=== PATIENT | female | born 1990 | race African-American/Black ===

== ENCOUNTER 2021-04-24 04:28 | Emergency (ER) | payer MEDICAID ==
[~2021-04-24] VITALS: Ht 172.7 cm; Wt 77.2 kg
[~2021-04-24 04:28] MED LIST: ALBU6.7H9 INH; BUSP10TA3 MT; LURA40TA PO; MULT-1146 MT; PREN1TAB78 MT
[2021-04-24] MEDS ORDERED: ACETAMINOPHEN 325MG TABLET PO SCH (05:44)
[2021-04-24] MEDS ORDERED: PROCHLORPERAZINE 10MG/2ML VIAL IV SCH (05:44)
[2021-04-24 06:44] LABS: BASOPHILS % 0.6 % (0.0-2.0); EOSINOPHILS % 0.2 % (0.0-5.0); HEMATOCRIT. 38.8 % (36.0-48.0); HEMOGLOBIN. 12.5 g/dL (12.0-16.0); LYMPHOCYTES % 17.7 % (20.0-50.0); MEAN CORPUSCULAR HEMOGLOBIN 24.9 pg (28.0-32.0); MEAN CORPUSCULAR VOLUME 77.3 fL (81.0-99.0); MEAN PLATELET VOLUME 7.8 fl (7.4-10.4); MONOCYTES % 3.4 % (2.0-8.0); NEUTROPHILS % 78.1 % (40.0-76.0); PLATELET 347 x1000/uL (130-400); RED BLOOD CELL COUNT 5.02 mill/uL (4.2-5.4); RED CELL DISTRIBUTION WIDTH 14.5 % (11.6-14.6)
[2021-04-24 06:45] LABS: CHLORIDE 108 mEq/L (98-107)
[2021-04-24 08:53] VITALS: BP 98/56
== END 2021-04-24 09:22 | disposition home or self-care (01) ==
LOC: ER 04:28
DX: R51.9 Headache, unspecified (principal); R11.0 Nausea; F41.9 Anxiety disorder, unspecified; F31.9 Bipolar disorder, unspecified; K21.9 Gastro-esophageal reflux disease without esophagitis; Z79.899 Other long term (current) drug therapy
CPT/HCPCS: 36415; 80053; 83690; 85025; 99283; J0780